=== PATIENT | male | born 1980 | race Caucasian/White ===

== ENCOUNTER 2018-02-09 22:16 | Emergency (ER) | payer MEDICAID ==
[~2018-02-09] VITALS: Ht 172.7 cm; Wt 100.0 kg
[~2018-02-09 22:16] MED LIST: OMEP20CA10 PO
[2018-02-09] MEDS ORDERED: MORPHINE SULFATE 4 MG/ML CPJ (NOT FOR IM USE) IV STA (22:34)
[2018-02-09] MEDS ORDERED: SODIUM CHLORIDE 0.9% 1,000 ML IV ONE (22:34)
[2018-02-09] MEDS ORDERED: ONDANSETRON HCL 4MG/2ML VIAL IV STA (22:34)
[2018-02-09 23:00] LABS: BASOPHILS % 0.8 % (0.0-2.0); EOSINOPHILS % 2.1 % (0.0-5.0); HEMOGLOBIN. 13.6 g/dL (14.0-18.0); LYMPHOCYTES % 15.5 % (20.0-50.0); MEAN CORPUSCULAR HEMOGLOBIN 30.5 pg (28.0-32.0); MEAN CORPUSCULAR VOLUME 89.5 fL (80.0-94.0); MONOCYTES % 7.2 % (2.0-8.0); NEUTROPHILS % 74.4 % (40.0-76.0); PLATELET 428 x1000/uL (130-400); RED BLOOD CELL COUNT 4.47 mill/uL (4.7-6.1); RED CELL DISTRIBUTION WIDTH 13.7 % (11.6-14.6)
[2018-02-09 23:06] LABS: CHLORIDE 107 mEq/L (98-107); PROTHROMBIN TIME 9.6 sec (9.1-11.1)
[2018-02-10 00:03] LABS: CLARITY URINE CLEAR (CLEAR); COLOR URINE YELLOW (YELLOW); KETONES URINE NEGATIVE (NEGATIVE); LEUKOCYTE ESTERASE URINE NEGATIVE (NEGATIVE); NITRITE URINE NEGATIVE (NEGATIVE); OCCULT BLOOD URINE NEGATIVE (NEGATIVE); PROTEIN URINE NEGATIVE (NEGATIVE); SPECIFIC GRAVITY URINE 1.018 (1.005-1.030); UROBILINOGEN URINE 0.2 E.U./dL (0.2-1.0)
[2018-02-10] MEDS ORDERED: MORPHINE SULFATE 4 MG/ML CPJ (NOT FOR IM USE) IV ONE (00:15)
[2018-02-10] MEDS ORDERED: IOHEXOL-300 100 ML BOTTLE ONE (02:20)
[2018-02-10 02:22] VITALS: BP 131/86
== END 2018-02-10 02:27 | disposition home or self-care (01) ==
LOC: ER 22:16
DX: R10.84 Generalized abdominal pain (principal); R11.2 Nausea with vomiting, unspecified; Z90.49 Acquired absence of other specified parts of digestive tract
CPT/HCPCS: 36415; 74177; 80053; 81003; 83690; 85025; 85610; 96361; 96374; 96375; 96376; 99285; J2270; J2405; J7030; Q9967; Z7610

== ENCOUNTER 2018-06-29 03:57 | Emergency (ER) | payer MEDICAID ==
[~2018-06-29] VITALS: Ht 165.1 cm; Wt 80.0 kg
[2018-06-29 04:12] VITALS: BP 122/86
== END 2018-06-29 06:00 | disposition left against medical advice (07) ==
LOC: ER 05:04
DX: Z53.21 Procedure and treatment not carried out due to patient leaving prior to being seen by health care provider (principal)

== ENCOUNTER 2018-08-20 00:06 | Emergency (ER) | payer MEDICAID ==
[~2018-08-20] VITALS: Ht 165.1 cm; Wt 86.0 kg
[2018-08-20 00:09] VITALS: BP 140/78
== END 2018-08-20 03:20 | disposition left against medical advice (07) ==
LOC: ER 00:06
DX: R10.9 Unspecified abdominal pain (principal); Z53.21 Procedure and treatment not carried out due to patient leaving prior to being seen by health care provider

== ENCOUNTER 2023-07-01 02:35 | Emergency (ER) | payer MEDICAID ==
[~2023-07-01] VITALS: Ht 165.1 cm; Wt 95.0 kg
[~2023-07-01 02:35] MED LIST changes: -OMEP20CA10 PO; +OMEP20CA14 PO
[2023-07-01 02:38] VITALS: O2SAT 98
[2023-07-01] MEDS ORDERED: IPRATROPIUM BROMIDE (0.02%) 0.5MG/2.5ML NEB HHN STA (02:44)
[2023-07-01] MEDS ORDERED: ALBUTEROL (0.083%) 2.5MG/3ML NEB HHN STA (02:44)
[2023-07-01] MEDS ORDERED: SODIUM CHLORIDE 0.9% 1000ML BAG (SEPSIS BOLUS) IV ONE (02:45)
[2023-07-01] MEDS ORDERED: GUAIFENESIN 600MG ER TABLET PO ONE (02:45)
[2023-07-01 03:15] LABS: BASOPHILS % 0.5 % (0.0-2.0); EOSINOPHILS % 1.7 % (0.0-5.0); HEMATOCRIT. 39.7 % (42.0-52.0); HEMOGLOBIN. 13.2 g/dL (14.0-18.0); LYMPHOCYTES % 37.6 % (20.0-50.0); MEAN CORPUSCULAR HEMOGLOBIN 29.3 pg (28.0-32.0); MEAN CORPUSCULAR HGB CONC 33.2 g/dL (31.0-37.0); MEAN CORPUSCULAR VOLUME 88.3 fL (80.0-94.0); MEAN PLATELET VOLUME 7.3 fl (7.4-10.4); MONOCYTES % 7.3 % (2.0-8.0); NEUTROPHILS % 52.9 % (40.0-76.0); PLATELET 362 x1000/uL (130-400); RED CELL DISTRIBUTION WIDTH 13.7 % (11.6-14.6); WHITE BLOOD COUNT 8.1 x1000/uL (4.5-11.0)
[2023-07-01 03:21] LABS: PARTIAL THROMBOPLASTIN TIME 29.7 sec (23.4-31.0); PROTHROMBIN TIME 10.3 sec (9.6-11.0)
[2023-07-01 03:23] LABS: ALANINE AMINOTRANSFERASE 93 IU/L (10-49); ALBUMIN 3.8 g/dL (3.2-4.8); ASPARTATE AMINOTRANSFERASE 36 IU/L (<34); BILIRUBIN TOTAL 0.2 mg/dL (0.1-1.0); CALCIUM 8.5 mg/dL (8.7-10.4); CARBON DIOXIDE 17 mEq/L (21-32); CHLORIDE 111 mEq/L (98-107); CREATININE 0.7 mg/dL (0.6-1.3); GLUCOSE 97 mg/dL (70-105); POTASSIUM 3.9 mEq/L (3.5-5.1); PROTEIN TOTAL 6.3 g/dL (6.0-8.3); SODIUM 142 mEq/L (136-145); UREA NITROGEN BLOOD 11 mg/dL (9-23)
[2023-07-01 03:33] LABS: TROPONIN I HIGH SENSITIVITY < 4 ng/L (3.0-53)
[2023-07-01 05:26] LABS: TROPONIN I HIGH SENSITIVITY < 4 ng/L (3.0-53)
[2023-07-01] MEDS ORDERED: GUAI600T26 MT (05:43)
[2023-07-01] MEDS ORDERED: IBUP-2029 MT (05:43)
[2023-07-01] MEDS ORDERED: ALBU6.7H15 INH (05:43)
[2023-07-01] MEDS ORDERED: KETOROLAC 15MG/ML VIAL IV ONE (05:45)
[2023-07-01] MEDS ORDERED: IOHEXOL-350 100 ML BOTTLE ONE (06:16)
[2023-07-01 06:25] VITALS: BP 135/78; PULSE 88; RESP 16; TEMP 98.5
== END 2023-07-01 06:30 | disposition home or self-care (01) ==
LOC: ER 02:35
DX: R07.9 Chest pain, unspecified (principal); F31.9 Bipolar disorder, unspecified; B34.9 Viral infection, unspecified; F41.9 Anxiety disorder, unspecified; I10 Essential (primary) hypertension; Z90.89 Acquired absence of other organs
CPT/HCPCS: 99285; 71275; 71045; 80053; 83880; 83605; 85025; 85610; 85730; 87040; 84484; 36415; 93005; Q9967; J7030

== ENCOUNTER 2025-03-31 03:25 | Emergency (ER) | payer MEDICAID ==
[~2025-03-31] VITALS: Ht 172.7 cm; Wt 108.0 kg
[~2025-03-31 03:25] MED LIST changes: +ALBU6.7H15 INH; +GUAI600T26 MT; +IBUP-1455 MT
[2025-03-31 03:34] VITALS: O2SAT 98
[2025-03-31] MEDS ORDERED: HYDR-4001 MT (04:00)
[2025-03-31] MEDS ORDERED: LIDO-53 TP (04:00)
[2025-03-31] MEDS ORDERED: IBUP-1455 MT (04:00)
[2025-03-31 04:08] VITALS: TEMP 36.7; O2SAT 97
[2025-03-31 04:10] VITALS: BP 106/68; PULSE 87; RESP 16
[2025-03-31] MEDS: KETOROLAC 30MG/ML VIAL IM ONE (04:10)
== END 2025-03-31 04:08 | disposition home or self-care (01) ==
LOC: EEVIPCON 03:25 → ER 03:25
DX: M54.50 Low back pain, unspecified (principal); I10 Essential (primary) hypertension; F10.90 Alcohol use, unspecified, uncomplicated; Z90.49 Acquired absence of other specified parts of digestive tract; Z79.899 Other long term (current) drug therapy; Y90.9 Presence of alcohol in blood, level not specified
CPT/HCPCS: 96372; 99283; J1885; Z7610